=== PATIENT | male | born 1940 | race Two or more races ===

== ENCOUNTER → 2016-05-31 | Outpatient (CLI) | payer OTHER | END | disposition home or self-care (01) | LOC: CVU 08:41 | PROVIDERS: ATTEND Internal Medicine Cardiovascular Disease | DX: I71.4 Abdominal aortic aneurysm, without rupture (principal); I10 Essential (primary) hypertension; E78.5 Hyperlipidemia, unspecified | CPT/HCPCS: 93978 ==

== ENCOUNTER 2019-09-01 17:10 | Emergency (ER) | payer OTHER ==
[~2019-09-01] VITALS: Ht 160 cm; Wt 71.8 kg
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
[2019-09-01] MEDS ORDERED: TAMS-11 PO (17:48)
[2019-09-01] MEDS ORDERED: LISI-167 PO (17:48)
[2019-09-01] MEDS ORDERED: ATOR40TA78 PO (17:48)
[2019-09-01] MEDS ORDERED: CARV-39 PO (17:48)
[2019-09-01] MEDS ORDERED: VITAMIN D PEG (17:49)
[2019-09-01] MEDS ORDERED: ASPI-496 PO (17:49)
[2019-09-01 17:53] VITALS: BP 120/74
--- NOTE | 2019-09-01 17:54 | NUR ---
NOSE CLAMP REMOVED DURING MED STUDENT EXAM; NO EPISTAXIS NOTED.
[2019-09-01] MEDS ORDERED: SILVER NITRATE STICK TP ONE (18:10)
[2019-09-01] MEDS ORDERED: PHENYLEPHRINE NASAL 1%, 15ML SPRAY ONE (18:13)
[2019-09-01] MEDS ORDERED: LIDOCAINE-MPF 1%, 5ML ONE (18:13)
--- NOTE | 2019-09-01 19:12 | NUR ---
TAMADOL GIVEN PER EMAR.
== END 2019-09-01 19:56 | disposition home or self-care (01) ==
LOC: ED 18:36
DX: R04.0 Epistaxis (principal); R51 Headache; R42 Dizziness and giddiness; R94.31 Abnormal electrocardiogram [ECG] [EKG]
CPT/HCPCS: 30901; 93005; 99283